=== PATIENT | male | born 2000 | race Caucasian/White ===

== ENCOUNTER 2024-02-02 19:41 | Emergency (ER) | payer BC, OTHER ==
[2024-02-02 20:10] VITALS: RESP 20
[2024-02-02 20:15] VITALS: BP 127/79; PULSE 90; TEMP 98.7; BMI 27.3
[2024-02-02] MEDS ORDERED: IBUPROFEN 600 MG TABLET (FP) PO ONE (21:50)
[2024-02-02] MEDS ORDERED: ACETAMINOPHEN 500 MG TABLET (FP) ONE (21:50)
[2024-02-02] MEDS: IBUPROFEN 600 MG TABLET (FP) PO ONE (22:02)
[2024-02-02] MEDS: ACETAMINOPHEN 500 MG TABLET (FP) PO ONE (22:03)
== END 2024-02-02 22:30 | disposition home or self-care (01) ==
LOC: JER 19:41
DX: J18.9 Pneumonia, unspecified organism (principal); M54.6 Pain in thoracic spine
CPT/HCPCS: 71046-TC-FY; 99283-25